=== PATIENT | male | born 1940 | race Caucasian/White ===

== ENCOUNTER → 2017-01-05 | Day surgery (SDC) | payer OTHER ==
[~2017-01-05] MED LIST: AMLODIPINE BESYL5 MG PO; ANUSOL-HC21 GM; FINASTERIDE5 M1 PO; FLOMAX0.4 M1 PO; METOPROLOL TAR25 MG PO; NORVASC PO; PRINIVIL20 M1 PO; PROSCAR5 MG PO
--- NOTE | ~2017-01-05 | OR ---
Unit #: [id number] #: [id number] Patient: RAND MARY [id number] [address] [address] [id number] O MR#: [id number] NAME: RAND MARY ROOM: Date of Procedure: 01/05/2017 Admission Date: 01/05/2017 Surgeon: Juan Saldana M.D. : 1940 Attending Physician: Juan Saldana M.D. Primary Care Physician: Medardo Cox M.D. OPERATIVE REPORT PREOPERATIVE DIAGNOSES The patient has presented for surveillance colonoscopy. He has personal history of removal of colonic adenomas in the past. PROCEDURES PERFORMED 1. Colonoscopy and polypectomy. 2. Colonoscopy and biopsies. POSTOPERATIVE DIAGNOSES 1. The patient had 2 sessile polyps in the transverse colon and one in the sigmoid colon. The sigmoid polyp was removed using cold biopsy forceps and the transverse colon polyps were removed using snare polypectomy. The polyps ranged in size from 4 to 8 mm each. All the polyps were retrieved and sent for histology. 2. Rest of the examination up to cecum and terminal ileum was normal. The quality of the prep was excellent. RECOMMENDATIONS Follow up results of polyp histology and consider repeat colonoscopy in 5 years. SEDATION USED MAC. DESCRIPTION OF PROCEDURE Following detailed explanation of the potential risks and complications of a colonoscopy, namely perforation, bleeding, and complications related to sedation, the patient was brought to GI lab and laid in the left lateral decubitus position. A digital rectal examination was performed, which was normal. Lubricated tip of the Olympus video colonoscope was inserted through the anus and advanced under direct vision. The scope was advanced and passed up to sigmoid into descending colon. No diverticula were noticed in this area. The scope tip was then navigated all the way up to cecum with visualization of the ileocecal valve and the appendiceal orifice. Preparation was excellent with good visualization and photodocumentation was obtained. Last several inches of the terminal ileum also visualized after intubation of the ileocecal valve and appeared normal. Successive segments of the colonic mucosa were examined upon withdrawal and the patient was noted to have 2 sessile polyps in the transverse colon. These were 6 to 8 mm each. Both were removed using snare polypectomy. A third polyp was present in the sigmoid colon. It was removed using cold biopsy forceps. The polyp was diminutive. All the Unit #: [id number] #: [id number] Patient: RAND MARY polyps were retrieved and sent for histology. The patient did not have any diverticulosis nor any hemorrhoids. The scope was then withdrawn. The patient returned to the recovery area. He tolerated the procedure without any postprocedure complications. Dictated by... Mike Juarez/bertrand TD: 01/06/2017 06:41 JOB #: [id number] OPERATIVE REPORT X Juan Saldana MD X PROCEDURE OPERATIVE NOTE
== END | disposition home or self-care (01) ==
LOC: COPS 12:59
DX: Z12.11 Encounter for screening for malignant neoplasm of colon (principal); D12.3 Benign neoplasm of transverse colon; K63.5 Polyp of colon; Z86.010 Personal history of colon polyps; K21.9 Gastro-esophageal reflux disease without esophagitis; Z98.890 Other specified postprocedural states
CPT/HCPCS: 88305